=== PATIENT | male | born 1935 | race Caucasian/White ===

== ENCOUNTER 2021-12-02 23:31 | Inpatient (IN) | payer BC ==
[~2021-12-02] VITALS: Ht 182.9 cm; Wt 109.0 kg
[2021-12-02 23:36] VITALS: BP_SYST 129
--- NOTE | 2021-12-02 23:36 | NUR ---
Patient triaged and placed in wall way w/ ems gurney. VSS and patient appears in no acute distress at this time. Accompanied by ems, awaiting available bed, and MD notified of need for MSE.
--- NOTE | 2021-12-02 23:45 | NUR ---
ER examining patient in ems [facility].
[2021-12-03] VITALS (21 sets, daily range): BP systolic 90–148
--- NOTE | 2021-12-03 00:10 | NUR ---
Placed in room 5 . Placed on monitoring and evaluation advisor, blood pressure machine and pulse oximeter. To gown for exam. Side rails up. Report given to TRISTIN BETANCUR.
[2021-12-03 00:18] LABS: BASOPHILS % (AUTO) 0.3 % (0.0-2.0); EOSINOPHILS # (AUTO) 0.1 K/uL (0.0-0.4); EOSINOPHILS % (AUTO) 1.2 % (0.0-4.0); HEMOGLOBIN 11.3 g/dL (14.0-18.0); LYMPHOCYTES % (AUTO) 14.6 % (20.5-51.5); MEAN CORPUSCULAR HEMOGLOBIN 34 pg (27-31); MEAN CORPUSCULAR HGB CONC 38 % (32-36); MEAN CORPUSCULAR VOLUME 89 fL (79.0-98.0); MONOCYTES # (AUTO) 0.7 K/uL (0.0-1.0); MONOCYTES % (AUTO) 9.6 % (1.7-9.3); NEUTROPHILS # (AUTO) 5.3 K/uL (1.8-7.7); NEUTROPHILS % (AUTO) 74.3 % (40.0-70.0); PLATELET COUNT (AUTO) 290 K/uL (130-430); RED BLOOD CELL COUNT(AUTO) 3.36 MIL/uL (4.2-6.2); RED CELL DISTRIBUTION WIDTH 14.1 % (9.0-15.0); WHITE BLOOD COUNT (AUTO) 7.2 K/uL (4.8-10.8)
--- NOTE | 2021-12-03 00:25 | NUR ---
Pt BIBA from home with c/o of SOB that started at 1930. Pt using accessory muscles and 92% O2 sat on RA. Pt denies CP, N/V. Pt placed on 2L NC O2 sat at 96% now and pt stating it is easier to breath now.
--- NOTE | 2021-12-03 00:26 | NUR ---
Pt speaking in full sentences but having to catch his breath after. Pt USMAN.
[2021-12-03 00:48] LABS: ANION GAP 8 (5-15); CALCIUM 8.6 mg/dL (8.4-11.0); CREATININE 0.99 mg/dL (0.55-1.30); GLUCOSE 139 mg/dL (70-99); POTASSIUM 4.4 mmol/L (3.5-5.1); UREA NITROGEN, BLOOD 13 mg/dL (8-21)
[2021-12-03] MEDS ORDERED: NITSL SL (00:49)
[2021-12-03] MEDS ORDERED: ROSU20TA2 PO (00:49)
[2021-12-03] MEDS ORDERED: SPIR50TA5 PO (00:49)
[2021-12-03] MEDS ORDERED: METF-518 PO (00:49)
[2021-12-03] MEDS ORDERED: APIX5TAB4 PO (00:49)
[2021-12-03] MEDS ORDERED: HYG25 PO (00:49)
[2021-12-03] MEDS ORDERED: VALS320T2 PO (00:49)
[2021-12-03] MEDS ORDERED: CORCR20 PO (00:49)
[2021-12-03 00:55] LABS: ALANINE AMINOTRANSFERASE 25 U/L (12-78); ALBUMIN 3.6 g/dL (3.4-4.8); ASPARTATE AMINOTRANSFERASE 43 U/L (10-37)
[2021-12-03 00:57] LABS: CHLORIDE 78 mmol/L (98-107)
--- NOTE | 2021-12-03 01:00 | NUR ---
Daughter stated she see her dad is more disoriented than more and patient stating "I cannot explain how I feel right now, I dont know how I feel." A&O X3. is aware.
--- NOTE | 2021-12-03 01:14 | NUR ---
MARIA ESTHER SWABBED AND SENT TO LAB
[2021-12-03] MEDS ORDERED: NACL 0.9% 1,000 ML IV ONE (01:15)
[2021-12-03] MEDS ORDERED: METF500S9 PO (01:40)
[2021-12-03] MEDS ORDERED: VALS160T2 PO (01:40)
[2021-12-03] MEDS ORDERED: ALPRAZolam 0.25 MG TABLET PO ONE (01:45)
[2021-12-03] MEDS ORDERED: SODIUM CHLORIDE 3% *HI-ALERT* 150 ML IV ONE (02:00)
[2021-12-03] MEDS ORDERED: INSULIN REGULAR, HUMAN 100 UNITS/ML, 3 ML VIAL (humuLIN R) SUBCUT PRN (02:00)
--- NOTE | 2021-12-03 02:06 | NUR ---
Admit bed requested Patient will be admitted to care of . Admitted to ICU unit. Diagnosis HYPONATREMIA Inpatient (Yes or No) YES Observation (Yes or No) NO Orientation concerns or request close to nursing station (Yes or No) YES Covid Status PENDING On vent or bipap NO Isolation requirements NO Needs a sitter NO From Home (Yes or if No enter name of facility) YES Requires Dialysis (Yes or No) NO Med Rec Completed (Yes of No) YES
--- NOTE | 2021-12-03 02:07 | NUR ---
Charge Nurse Leny made aware to start NS 0.9% 100mls/hr after 3% NS 150ml @ 15mls/hr completed.
--- NOTE | 2021-12-03 02:33 | NUR ---
Received patient from ER via gurney with family at bedside. Patient forgetful but able to follow commands. BLACKFEET noted with left hearing aid in place. Connected to wall monitor; NC 2L required. Orders to start 3% Na solution noted and will be requested from nursing rn house supervisor.
--- NOTE | 2021-12-03 02:35 | NUR ---
Patient will be admitted to care of Dr Cheng. Admitted to ICU unit. Will go to room ICU4. Belongings list completed. Complete and up to date summary report printed. SBAR report given to Deon BETANCUR at bedside with opportunity for questions. Primary nurse made aware to start NS 3% at rate of 15ml/hr with total volume of 150ml. After completed, then maintance fluids of NS 0.9% 1000ml with rate at 100ml/hr is to be started.
[2021-12-03] MEDS ORDERED: SODIUM CHLORIDE 3% *HI-ALERT* 500 ML IV ONE (04:14)
--- NOTE | 2021-12-03 04:59 | NUR ---
CONSULTATION PAGED/CALLED Reason for Consultation: Hyponatremia Person Who was Notified: [place] Consulting Physician: Dr. Redmond Internal Communications Intern Specialty: Nephrology Ordering Physician: Dr Cheng
[2021-12-03] MEDS ORDERED: NACL 0.9% 1,000 ML IV SCH (12:00)
[2021-12-03] MEDS: NACL 0.9% 1,000 ML IV SCH (14:14)
[2021-12-03 14:47] LABS: BILIRUBIN,URINE NEGATIVE (NEGATIVE); CLARITY/URINE CLEAR (CLEAR); COLOR,URINE YELLOW (YELLOW); GLUCOSE,URINE NEGATIVE (NEGATIVE); LEUKOCYTE ESTERASE ,URINE NEGATIVE (NEGATIVE); NITRITE, URINE NEGATIVE (NEGATIVE); PROTEIN URINE NEGATIVE (NEGATIVE)
[2021-12-03 16:16] LABS: KETONES,URINE NEGATIVE (NEGATIVE); PH,URINE 5.5 (5.0-8.0)
[2021-12-03 16:17] LABS: BLOOD, URINE 1+ (NEGATIVE); UROBILINOGEN,URINE 0.2 (0.2-1.0)
[2021-12-03 16:18] LABS: BACTERIA,URINE None Seen /HPF (None Seen); MUCUS,URINE None Seen /LPF (None Seen); RBC,URINE 0-3 /HPF (0-3); WBC,URINE NONE SEEN /HPF (0-3)
[2021-12-03 17:12] LABS: ALANINE AMINOTRANSFERASE 25 U/L (12-78); ALBUMIN 3.2 g/dL (3.4-4.8); ANION GAP 4 (5-15); ASPARTATE AMINOTRANSFERASE 39 U/L (10-37); CALCIUM 8.9 mg/dL (8.4-11.0); CHLORIDE 91 mmol/L (98-107); CREATININE 0.81 mg/dL (0.55-1.30); GLUCOSE 103 mg/dL (70-99); PHOSPHORUS 3.2 mg/dL (2.7-4.5); POTASSIUM 3.6 mmol/L (3.5-5.1); TOTAL BILIRUBIN 0.7 mg/dL (0.0-1.0); UREA NITROGEN, BLOOD 7 mg/dL (8-21)
--- NOTE | 2021-12-03 19:30 | NUR ---
Received report and assumed care. Patient resting; no signs of distress or agitation noted. Even and Unlabored breathing. Labs ordered for next morning. Per Lab, Mg and Phos orders changed to am; waiting still for send out to [facility] labs. will continue to monitor as per unit protocol.
[2021-12-04] VITALS (13 sets, daily range): BP systolic 102–138
[2021-12-04 08:00] LABS: ALANINE AMINOTRANSFERASE 29 U/L (12-78); ALBUMIN 3.3 g/dL (3.4-4.8); ANION GAP 6 (5-15); ASPARTATE AMINOTRANSFERASE 33 U/L (10-37); CALCIUM 9.3 mg/dL (8.4-11.0); CHLORIDE 95 mmol/L (98-107); CREATININE 0.83 mg/dL (0.55-1.30); FREE T4 (FREE THYROXINE) 1.1 ng/dL (0.6-1.6); GLUCOSE 102 mg/dL (70-99); PHOSPHORUS 3.3 mg/dL (2.7-4.5); POTASSIUM 3.7 mmol/L (3.5-5.1); TOTAL BILIRUBIN 0.7 mg/dL (0.0-1.0); UREA NITROGEN, BLOOD 6 mg/dL (8-21)
[2021-12-04] MEDS: NACL 0.9% 1,000 ML IV SCH (10:17)
--- NOTE | 2021-12-04 11:37 | NUR ---
Hearing Aids Two hearing aids observed with the patient. One was in his ear and the other one one was in a black case. His daughter was at the bedside and saw both of them as well.
--- NOTE | 2021-12-04 18:50 | NUR ---
Patient transferred to Telemetry Rm. 122a Addendum: 12/04/21 at 1904 by Tim Ricci RN Patient transferred to Telemetry Rm. 122B for alternate level of care. Patient tolerated transfer without incident with report given to GYPSY Sawant. End of care.
--- NOTE | 2021-12-04 19:00 | NUR ---
RECEIVED PT FROM ICU. A/OX4. DAUGHTER AT BEDSIDE. BP 128/81.HR 82. ON 2 L SATURATION 95%. DENIES ANY PAIN OR SOB AT THIS TIME.EATING DINNER. CALL LIGHT WITHIN REACH.REPORT GIVEN TO GYPSY DIAZ
[2021-12-05] VITALS: BP_SYST 110
[2021-12-05] MEDS: NACL 0.9% 1,000 ML IV SCH ×3 (02:00→23:58)
[2021-12-05 07:00] VITALS: BP_SYST 117
[2021-12-05 08:00] VITALS: BP_SYST 117
[2021-12-05 08:04] LABS: ANION GAP 6 (5-15); CALCIUM 8.7 mg/dL (8.4-11.0); CHLORIDE 99 mmol/L (98-107); CREATININE 0.81 mg/dL (0.55-1.30); GLUCOSE 111 mg/dL (70-99); POTASSIUM 3.9 mmol/L (3.5-5.1); UREA NITROGEN, BLOOD 9 mg/dL (8-21)
--- NOTE | 2021-12-05 09:30 | NUR ---
talk to the daughter about updates on the plan of care for the patient . daughter said she will here soon
--- NOTE | 2021-12-05 10:21 | NUR ---
check the oxygen saturation of the patient with 2L of nasal canulla and without for discharge , 97% with nasal canulla the daughter talk to pili the planner intern logistics solution manager
[2021-12-05 11:28] VITALS: BP_SYST 83
[2021-12-05 16:56] VITALS: BP_SYST 130
--- NOTE | 2021-12-05 18:20 | NUR ---
will endorse to real estate office manager rn for continuity of care
[2021-12-05 20:00] VITALS: BP_SYST 151
[2021-12-06 00:10] VITALS: BP_SYST 139
[2021-12-06 07:58] LABS: ANION GAP 6 (5-15); CALCIUM 8.4 mg/dL (8.4-11.0); CHLORIDE 98 mmol/L (98-107); CREATININE 0.81 mg/dL (0.55-1.30); GLUCOSE 120 mg/dL (70-99); POTASSIUM 3.8 mmol/L (3.5-5.1); UREA NITROGEN, BLOOD 7 mg/dL (8-21)
[2021-12-06 08:00] VITALS: BP_SYST 108
--- NOTE | 2021-12-06 08:00 | NUR ---
Initial Notes Patient is AOx4. Awake and watching TV. No s.s of distress noted. Patient denies pain at this time. Denies SOB. Breathing is even and nonlabored, on room air. Vital signs obtained, as documented. IVF running, IV patent. Educated patient to call for assistance when needed. Bed locked, alarm on, and at lowest position. Call light within reach.
[2021-12-06 11:15] VITALS: BP_SYST 100
--- NOTE | 2021-12-06 12:05 | NUR ---
Notes Patient is watching TV. No distress noted. Denies pain and SOB. Breathing is even and nonlabored, on room air. Blood glucose 150 mg/ dL. No coverage needed. Daughter at bedside. Bed locked, alarm on, and at lowest position. Call light within reach.
[2021-12-06] MEDS ORDERED: CARVEDILOL PHOSPHATE 10 MG CPMP.24HR ( COREG CR) PO SCH (14:00)
[2021-12-06] MEDS ORDERED: SPIRONOLACTONE 50 MG TABLET (ALDACTONE) PO ONE (14:00)
[2021-12-06] MEDS ORDERED: ROSUVASTATIN CALCIUM 5 MG/TAB (CRESTOR) PO SCH (14:00)
[2021-12-06] MEDS ORDERED: APIXABAN 2.5 MG TABLET PO ONE (14:00)
[2021-12-06 15:40] VITALS: BP_SYST 111
--- NOTE | 2021-12-06 16:49 | NUR ---
Notes Patient is resting, eyes closed. No s.s of distress noted. Breathing is even and nonlabored, on room air. IVF running. No SOB noted. No facial grimace noted. Bed locked, alarm on, and at lowest position. Call light within reach.
[2021-12-06 16:55] VITALS: BP_SYST 111
--- NOTE | 2021-12-06 18:35 | NUR ---
D/C Patient Patient given medication reconciliation form and D/C instructions. Exit Care provided. Patient verbalized understanding. MD discussed with patient the results and treatment provided. Ambulatory with steady gait for discharge to home. Patient in stable condition, ID band removed. IV catheter removed, intact and dressing applied, no active bleeding. Rx of given. Patient educated on pain management. All belongings sent with patient.
[2021-12-06] MEDS ORDERED: APIXABAN 2.5 MG TABLET PO SCH (21:00)
[2021-12-06] MEDS ORDERED: CARVEDILOL 6.25 MG TABLET (COREG) PO SCH (21:00)
[2021-12-07] MEDS ORDERED: SPIRONOLACTONE 50 MG TABLET (ALDACTONE) PO SCH (09:00)
[2021-12-07] MEDS ORDERED: ATORVASTATIN 20 MG TABLET PO SCH (09:00)
== END 2021-12-06 18:35 | disposition home or self-care (01) | DRG 640 ==
LOC: SED 23:31 → SIC 12-03 01:47 → STU 12-04 18:30
PROVIDERS: ADMIT Internal Medicine; ATTEND Internal Medicine
DX: E87.1 Hypo-osmolality and hyponatremia (principal); G93.41 Metabolic encephalopathy; E11.9 Type 2 diabetes mellitus without complications; E78.5 Hyperlipidemia, unspecified; I10 Essential (primary) hypertension; I25.10 Atherosclerotic heart disease of native coronary artery without angina pectoris; Z20.822 Contact with and (suspected) exposure to COVID-19; F10.20 Alcohol dependence, uncomplicated; Y90.9 Presence of alcohol in blood, level not specified; Z87.891 Personal history of nicotine dependence; Z95.5 Presence of coronary angioplasty implant and graft; Z79.01 Long term (current) use of anticoagulants; Z79.899 Other long term (current) drug therapy
CPT/HCPCS: 36415; 71045; 80048; 80053; 81000; 81003; 82962; 83735; 83880; 84100; 84439; 84443; 84479; 84484; 85025; 85379; 93005; 96360; 97116-GP; 97530-GP; 99285; G0378; J3490

== ENCOUNTER 2023-11-28 15:34 | Emergency (ER) | payer BC ==
[~2023-11-28] VITALS: Ht 180.3 cm; Wt 93.9 kg
[~2023-11-28 15:34] MED LIST: APIX5TAB4 PO; CORCR20 PO; HYG25 PO; METF500S9 PO; NITSL SL; ROSU20TA2 PO; SPIR50TA5 PO; VALS160T2 PO
[2023-11-28 15:41] VITALS: BP_SYST 145; PULSE 69; RESP 20; TEMP 97.1; O2SAT 96
[2023-11-28] MEDS ORDERED: META-23 PO (19:06)
[2023-11-28] MEDS ORDERED: CLON1TAB12 PO (19:06)
[2023-11-28 19:21] VITALS: BP_SYST 145; PULSE 69; RESP 20; TEMP 97.1; O2SAT 96
== END 2023-11-28 19:22 | disposition home or self-care (01) ==
LOC: SED 15:34
DX: G44.209 Tension-type headache, unspecified, not intractable (principal); E11.9 Type 2 diabetes mellitus without complications; I10 Essential (primary) hypertension; E78.5 Hyperlipidemia, unspecified; Z79.01 Long term (current) use of anticoagulants; Z79.84 Long term (current) use of oral hypoglycemic drugs; Z79.899 Other long term (current) drug therapy
CPT/HCPCS: 70450-TC; 82948; 99284